=== PATIENT | female | born 1985 | race Two or more races ===

== ENCOUNTER 2020-05-08 12:52 | Emergency (ER) | payer OTHER ==
[~2020-05-08] VITALS: Ht 167.6 cm; Wt 62.1 kg
[2020-05-08] MEDS ORDERED: KETO10TA2 PO (15:12)
== END 2020-05-08 16:23 | disposition home or self-care (01) ==
LOC: ER 12:52
DX: S83.8X1A Sprain of other specified parts of right knee, initial encounter (principal); X50.0XXA Overexertion from strenuous movement or load, initial encounter; Y93.01 Activity, walking, marching and hiking; Y92.232 Corridor of hospital as the place of occurrence of the external cause; Y99.8 Other external cause status

== ENCOUNTER → 2020-12-31 | Outpatient (CLI) | payer OTHER ==
[~2020-12-31] MED LIST: KETO10TA2 PO
== END | disposition home or self-care (01) ==
LOC: LAB 12:45
PROVIDERS: ATTEND Emergency Medicine Pediatric Emergency Medicine
DX: Z03.818 Encounter for observation for suspected exposure to other biological agents ruled out (principal)